=== PATIENT | male | born 1980 | race Caucasian/White ===

== ENCOUNTER 2017-10-07 16:10 | Emergency (ER) | payer OTHER, BC ==
[2017-10-07 16:28] VITALS: BP 162/101
[2017-10-07] MEDS ORDERED: METOCLOPRAMIDE HCL ORAL SOLN 10 MG/10 ML UDCUP PO ONE (17:37)
[2017-10-07] MEDS ORDERED: MAG HYDROX/AL HYDROX/SIMETH SUSP 30 ML UDCUP PO ONE (17:37)
[2017-10-07] MEDS ORDERED: LIDOCAINE 2% VISCOUS SOLN 20 ML UDCUP PO ONE (17:37)
--- NOTE | 2017-10-07 17:40 | ER Document Report ---
ED Medical Screen (RME) - General Chief Complaint: Abdominal Pain Stated Complaint: ABDOMINAL PAIN Time Seen by Provider: 10/07/17 17:36 TRAVEL OUTSIDE OF THE [place] IN LAST 30 DAYS: No - HPI Notes: 10/07/17 17:37 Patient is a 36-year-old male who presents to the ED complaining of epigastric pain and left abdominal pain 48 hours. Patient states that he is also started noticing left lower back ache that does not radiate. No injury. Patient states that he will have sharp pain mixed with cramping. His abdominal pain does not radiate. Patient states that his stools are loose but not watery. He has not had any nausea or vomiting associated. He has tried some [id number] meds with minimal relief. Patient states that food intake did worsen his symptoms. Denies any surgical history. Patient is still passing gas. Denies any drug allergies. Denies any headache, fever, URI, sore throat, chest pain, palpitations, syncope, cough, shortness of breath, wheeze, dyspnea, nausea/ vomiting, urinary retention, dysuria, hematuria, loss of control of bowel or bladder, numbness/tingling, saddle anesthesia, muscle paralysis/weakness, or rash. I have treated and performed a rapid initial assessment of this patient. A comprehensive ED assessment and evaluation of the patient, analysis of test results and completion of medical decision making process will be conducted by additional ED providers. PHYSICAL EXAMINATION: GENERAL: Well-appearing, well-nourished and in no acute distress. A&Ox4. Answers questions appropriately. LUNGS: Breath sounds clear to auscultation bilaterally and equal. No wheezes rales or rhonchi. HEART: Regular rate and rhythm without murmurs, rubs, gallops. ABDOMEN: Soft, nondistended abdomen. No guarding, no rebound. No masses appreciated. Normal bowel sounds present. No CVA tenderness bilaterally. + mild epigastric tenderness (cannot elicit thorough abd exam w/o table, however). Back: + mild tenderness Lt L-paraspinal mm, correlates with pain described. FROM. No foot drop. Extremities: No cyanosis, clubbing, or edema b/l. NEUROLOGICAL: Normal speech, normal gait. PSYCH: Normal mood, normal affect. - Related Data Allergies/Adverse Reactions: No Known Allergies Allergy (Verified 10/07/17 16:11) Past Medical History - Social History Chew tobacco use (# tins/day): No Frequency of alcohol use: Occasional Drug Abuse: None Renal/ Medical History: Denies: Hx Peritoneal Dialysis - Immunizations Hx Diphtheria, Pertussis, Tetanus Vaccination: Yes Physical Exam - Vital signs Vitals: Temp Pulse Resp BP Pulse Ox 99.7 F 90 16 162/101 H 96 10/07/17 16:26 10/07/17 16:26 10/07/17 16:26 10/07/17 16:26 10/07/17 16:26 Course - Vital Signs Vital signs: Temp Pulse Resp BP Pulse Ox 99.7 F 90 16 162/101 H 96 10/07/17 16:26 10/07/17 16:26 10/07/17 16:26 10/07/17 16:26 10/07/17 16:26 Doctor's Discharge - Discharge Referrals: LOCALMD,NO [Primary Care Provider] - Follow up as needed
--- NOTE | 2017-10-07 17:52 | RADIOLOGY REPORT (SQ) ---
EXAM DESCRIPTION: CHEST SINGLE VIEW COMPLETED DATE/TIME: 10/07/2017 5:45 pm REASON FOR STUDY: epigastric pain COMPARISON: April 2011 EXAM PARAMETERS: NUMBER OF VIEWS: One view. TECHNIQUE: Single frontal radiographic view of the chest acquired. RADIATION DOSE: NA LIMITATIONS: None. FINDINGS: LUNGS AND PLEURA: No opacities, masses or pneumothorax. No pleural effusion. MEDIASTINUM AND HILAR STRUCTURES: No masses. Contour normal. HEART AND VASCULAR STRUCTURES: Heart normal in size. Normal vasculature. BONES: No acute findings. HARDWARE: None in the chest. OTHER: No other significant finding. IMPRESSION: NO ACUTE RADIOGRAPHIC FINDING IN THE CHEST. TECHNICAL DOCUMENTATION: JOB ID: [id number] [employer]- All Rights Reserved Reading location - IP/workstation name: [email or web address]
[2017-10-07 18:15] LABS: ABSOLUTE BASOPHILS # (AUTO) 0.1 10^3/uL (0.0-0.2); ABSOLUTE EOSINOPHILS # (AUTO) 0.2 10^3/uL (0.0-0.6); ABSOLUTE LYMPHOCYTES (AUTO) 2.4 10^3/uL (0.5-4.7); ABSOLUTE MONOCYTES (AUTO) 0.9 10^3/uL (0.1-1.4); ABSOLUTE NEUT (AUTO) 6.7 10^3/uL (1.7-8.2); HEMATOCRIT 42.9 % (37.9-51.0); HEMOGLOBIN 15.2 g/dL (13.5-17.0); LYMPHOCYTES % (AUTO) 23.5 % (13-45); MEAN CORPUSCULAR HEMOGLOBIN 30.1 pg (27.0-33.4); MEAN CORPUSCULAR HGB CONC 35.5 g/dL (32.0-36.0); MEAN CORPUSCULAR VOLUME 85 fl (80-97); MONOCYTES % (AUTO) 9.1 % (3-13); PLATELET COUNT 242 10^3/uL (150-450); RED BLOOD COUNT 5.05 10^6/uL (4.35-5.55); RED CELL DISTRIBUTION WIDTH 13.5 % (11.5-14.0); SEGMENTED NEUTROPHILS % (AUTO) 64.4 % (42-78); TOTAL CELLS COUNTED % (AUTO) 100 %; WHITE BLOOD COUNT 10.4 10^3/uL (4.0-10.5)
[2017-10-07 18:34] LABS: ALANINE AMINOTRANSFERASE 48 U/L (21-72); ALBUMIN 4.2 g/dL (3.5-5.0); ALKALINE PHOSPHATASE 64 U/L (38-126); ANION GAP 14 (5-19); ASPARTATE AMINO TRANSFERASE 24 U/L (17-59); BILIRUBIN,DIRECT 0.3 mg/dL (0.0-0.4); BILIRUBIN,TOTAL 0.5 mg/dL (0.2-1.3); BLOOD UREA NITROGEN 17 mg/dL (7-20); CALCIUM 9.4 mg/dL (8.4-10.2); CARBON DIOXIDE 25 mmol/L (22-30); CHLORIDE 103 mmol/L (98-107); GLUCOSE 99 mg/dL (75-110); LIPASE 314.1 U/L (23-300); POTASSIUM 3.6 mmol/L (3.6-5.0); SODIUM 142.4 mmol/L (137-145); TOTAL PROTEIN 7.3 g/dL (6.3-8.2)
--- NOTE | 2017-10-07 19:50 | ER Document Report ---
ED GI/ - General Mode of Arrival: Ambulatory Information source: Patient TRAVEL OUTSIDE OF THE [place] IN LAST 30 DAYS: No <DERIC GARCES - Last Filed: 10/07/17 20:25> <TEE LITTLE - Last Filed: 10/07/17 20:43> - General Chief Complaint: Abdominal Pain Stated Complaint: ABDOMINAL PAIN Time Seen by Provider: 10/07/17 17:36 Notes: Patient is a 36 year old male with HTN presents to the emergency department complaining of abdominal pain onset 2 days ago. Patient states his abdominal pain is located primarily in the left upper quadrant and epigastric region and is exacerbated with food. Patient also complains of some diarrhea. Patient denies any vomiting, nausea or abdominal surgeries. Patient mentions previously taking Nexium daily although he now takes it every other day. (DERIC GARCES) - Related Data Allergies/Adverse Reactions: No Known Allergies Allergy (Verified 10/07/17 16:11) Past Medical History - General Information source: Patient - Social History Smoking Status: Never Smoker Chew tobacco use (# tins/day): No Frequency of alcohol use: Social Drug Abuse: None Family History: Reviewed & Not Pertinent Patient has suicidal ideation: No Patient has homicidal ideation: No - Past Medical History Cardiac Medical History: Reports: Hx Hypertension - Immunizations Hx Diphtheria, Pertussis, Tetanus Vaccination: Yes <DERIC GARCES - Last Filed: 10/07/17 20:25> Review of Systems - Review of Systems Constitutional: No symptoms reported EENT: No symptoms reported Cardiovascular: No symptoms reported Respiratory: No symptoms reported Gastrointestinal: See HPI, Abdominal pain, Diarrhea Genitourinary: No symptoms reported Male Genitourinary: No symptoms reported Musculoskeletal: No symptoms reported Skin: No symptoms reported Hematologic/Lymphatic: No symptoms reported Neurological/Psychological: No symptoms reported -: Yes All other systems reviewed and negative <DERIC GARCES - Last Filed: 10/07/17 20:25> Physical Exam <DERIC GARCES - Last Filed: 10/07/17 20:25> <TEE LITTLE - Last Filed: 10/07/17 20:43> - Vital signs Vitals: Temp Pulse Resp BP Pulse Ox 99.7 F 90 16 162/101 H 96 10/07/17 16:26 10/07/17 16:26 10/07/17 16:26 10/07/17 16:26 10/07/17 16:26 - Notes Notes: GENERAL: Alert, interacts well. No acute distress. HEAD: Normocephalic, atraumatic. EYES: Pupils equal, round, and reactive to light. Extraocular movements intact. ENT: Oral mucosa moist, tongue midline. NECK: Full range of motion. Supple. Trachea midline. LUNGS: Clear to auscultation bilaterally, no wheezes, rales, or rhonchi. No respiratory distress. HEART: Mild tachycardia. No murmurs, gallops, or rubs. ABDOMEN: Soft, epigastric and LUQ regions tender to palpation. Non-distended. Bowel sounds present in all 4 quadrants. EXTREMITIES: Moves all 4 extremities spontaneously. No edema, radial and dorsalis pedis pulses 2/4 bilaterally. No cyanosis. NEUROLOGICAL: Alert and oriented x3. Normal speech. PSYCH: Normal affect, normal mood. SKIN: Warm, dry, normal turgor. No rashes or lesions noted. (DERIC GARCES) Obese (TEE LITTLE) Course - Laboratory Result Diagrams: 10/07/17 18:00 10/07/17 18:00 <DERIC GARCES - Last Filed: 10/07/17 20:25> - Laboratory Result Diagrams: 10/07/17 18:00 10/07/17 18:00 <TEE LITTLE - Last Filed: 10/07/17 20:43> - Re-evaluation Re-evalutation: 10/07/17 19:54 CBC unremarkable, CMP unremarkable, lipase mildly elevated at 314, chest x-ray shows no acute process and no free air under the diaphragm. Patient's tenderness in the left upper quadrant does not correspond with a duodenal ulcer which is 1 of the 2 possible causes of a mildly elevated lipase. I did discuss pancreatitis versus duodenal ulcer with the patient, he agrees to try a clear liquid diet for the next 2 days and then slowly advance his diet. Should his pain persist he will return to the emergency department or see his primary care physician. He states that he also takes a antacid in the form of Nexium, states that he will try the Nexium as well if a low-fat diet does not improve or worsen his pain. 10/07/17 20:43 No significant relief from GI cocktail in fact he states it made his burning pain worse. (TEE LITTLE) - Vital Signs Vital signs: Temp Pulse Resp BP Pulse Ox 99.7 F 90 16 162/101 H 96 10/07/17 16:26 10/07/17 16:26 10/07/17 16:26 10/07/17 16:26 10/07/17 16:26 - Laboratory Laboratory results interpreted by me: 10/07/17 18:00 Lipase 314.1 H Discharge <DERIC GARCES - Last Filed: 10/07/17 20:25> <TEE LITTLE - Last Filed: 10/07/17 20:43> - Discharge Clinical Impression: Pancreatitis Qualifiers: Chronicity: acute Pancreatitis type: unspecified pancreatitis type Acute pancreatitis complication: unspecified Qualified Code(s): K85.90 - Acute pancreatitis without necrosis or infection, unspecified Condition: Stable Disposition: HOME, SELF-CARE Additional Instructions: Pancreatitis Pancreatitis is an inflammation of the pancreas, an organ at the back of your abdomen. The pancreas produces insulin and enzymes that digest your food. Pancreatitis can be caused by gallstones in the bile duct, by alcohol or viruses, or by excess fat or calcium in the blood stream. Occasionally, pancreatitis occurs when a stomach ulcer lea through into the pancreas. We try to find the cause of pancreatitis, but some tests can't be done until the pancreas heals. The usual symptoms of pancreatitis are pain in the pit of the stomach that goes straight through to the back, vomiting, and low-grade fever. Severe cases require hospital admission, but many patients with mild pancreatitis do well at home. You will probably need medicine for pain and for vomiting. Sometimes we prescribe medicine to decrease stomach acid secretion and to decrease flow of pancreatic juices. Start with a diet of clear liquids (soda pop, juices). When the pain is decreasing, you can add some simple starches (potato, toast, applesauce). Avoid proteins and fats until you are completely painfree. When you're better, your doctor may suggest treatment to prevent future pancreatitis (such as gallbladder removal). Avoid alcohol forever. Get immediate treatment for any future episodes. Contact your doctor at once or return here if you have increasing pain, shortness of breath, general swelling, increasing size of the abdomen, continued vomiting, muscle spasms, or other new symptoms. Referrals: ALESIA ORDONEZ MD [ACTIVE STAFF] - Follow up as needed Scribe Attestation: 10/07/17 20:43 I personally performed the services described in the documentation, reviewed and edited the documentation which was dictated to the scribe in my presence, and it accurately records my words and actions. (TEE LITTLE) Scribe Documentation - Scribe Written by Scrmartine:: Adalid Sy, 10/07/2017 20:24 acting as scribe for :: Jeannette <DERIC GARCES - Last Filed: 10/07/17 20:25>
== END 2017-10-07 20:17 | disposition home or self-care (01) ==
LOC: ER 16:10
DX: K85.90 Acute pancreatitis without necrosis or infection, unspecified (principal); R10.9 Unspecified abdominal pain; R19.7 Diarrhea, unspecified; I10 Essential (primary) hypertension
CPT/HCPCS: 99284; 36415; 83690; 85025; 80053; 71045; J3490